=== PATIENT | female | born 1955 | race Caucasian/White ===

== ENCOUNTER → 2025-09-28 10:08 | Outpatient (REF) | payer OTHER, MEDICARE, SELFPAY | LOC: RAD 10:08 | PROVIDERS: ATTENDING PHYSICIAN Internal Medicine Cardiovascular Disease; FAMILY PHYSICIAN Family Medicine | DX: R06.02 Shortness of breath (principal); Z82.49 Family history of ischemic heart disease and other diseases of the circulatory system | CPT/HCPCS: 75574; Q9967 ==